=== PATIENT | male | born 1975 ===

== ENCOUNTER 2018-06-25 07:47 | Emergency (ER) | payer MEDICAID ==
[2018-06-25] MEDS ORDERED: Albuterol-Ipratrop 3 mg / 0.5 (3 ml) UD IH STA (08:27)
--- NOTE | 2018-06-25 08:27 | C.PDOC ---
History Of Present Illness 42 year old male comes in stating that he hasnt been feeling well for the past 6 days. He complains of nasal congestion, chest congestion, subjective fever, productive cough with greenish sputum, and body aches. Also complains that he has difficulty sleeping, kept on coughing. Patient states that he is in a rehab program and that "everyone is sick there. He reports that they didn't let him take any medications so he came here to the ER. Patient denies any other symptoms. Time Seen by Provider: 06/25/18 07:59 Chief Complaint (Nursing): Cough, Cold, Congestion History Per: Patient History/Exam Limitations: no limitations Onset/Duration Of Symptoms: Days Current Symptoms Are (Timing): Still Present Past Medical History Reviewed: Historical Data, Nursing Documentation, Vital Signs Vital Signs: Last Vital Signs Temp 98.3 F 06/25/18 07:49 Pulse 105 H 06/25/18 07:49 Resp 20 06/25/18 07:49 BP 127/80 06/25/18 07:49 Pulse Ox 98 06/25/18 07:49 Family History: States: No Known Family Hx - Social History Hx Alcohol Use: No Hx Substance Use: No - Immunization History Hx Tetanus Toxoid Vaccination: No Hx Influenza Vaccination: No Review Of Systems Except As Marked, All Systems Reviewed And Found Negative. Constitutional: Positive for: Fever (subjective), Other (Body aches). Negative for: Chills ENT: Positive for: Nose Congestion (and chest congestion). Negative for: Throat Pain Cardiovascular: Negative for: Chest Pain Respiratory: Positive for: Cough, Sputum (greenish). Negative for: Shortness of Breath Gastrointestinal: Negative for: Nausea, Vomiting, Abdominal Pain Skin: Negative for: Rash Physical Exam - Physical Exam Appears: Non-toxic, No Acute Distress Skin: Warm, Dry Head: Atraumatic, Normacephalic Eye(s): bilateral: Normal Inspection, PERRL Ear(s): Bilateral: Normal Oral Mucosa: Moist Throat: Normal, No Erythema, No Exudate Neck: Supple Cardiovascular: Rhythm Regular, No Murmur Respiratory: Normal Breath Sounds, No Rales, No Rhonchi, No Wheezing Gastrointestinal/Abdominal: Soft, No Tenderness Extremity: Bilateral: Atraumatic, Normal Color And Temperature, Normal ROM Neurological/Psych: Oriented x3, Normal Speech ED Course And Treatment O2 Sat by Pulse Oximetry: 98 (RA) Pulse Ox Interpretation: Normal - Other Rad CXR X-Ray: Read By Radiologist Interpretation: FINDINGS: LUNGS: No active pulmonary disease. PLEURA: No significant pleural effusion identified. No pneumothorax apparent. CARDIOVASCULAR: No aortic atherosclerotic calcification present. Normal cardiac size. No pulmonary vascular congestion. Approximately 4 mm rounded hyperdensity over left hilum probably a vessel seen on end. A granuloma would be another favored consideration. OSSEOUS STRUCTURES: No significant abnormalities. VISUALIZED UPPER ABDOMEN: Normal. OTHER FINDINGS: None. IMPRESSION: No suspect acute cardiopulmonary pathology. Specifically no consolidative infiltrate seen. Progress Note: Chest x-ray ordered. Patient is slightly tachycardic but otherwise fine. Patient was given nebulizer treatment and zithromax PO. Disposition - Disposition Disposition: HOME/ ROUTINE Disposition Time: 09:39 Condition: STABLE Additional Instructions: Follow up with PMD/clinic within 2-3 days. Return to ED if feel worse. Prescriptions: Brompheniramine/Pseudoephed/Dm [Bromfed Dm Cough 118 ml] 10 ml PO Q4 #300 ml Ibuprofen [Motrin Tab] 600 mg PO Q8 #30 tab Albuterol Sulfate [Proair Hfa] 1 puff IH Q6 PRN #1 inh PRN Reason: Cough Azithromycin [Zithromax] 250 mg PO DAILY #4 tab Instructions: Acute Bronchitis Forms: [facility] (Russian) - Clinical Impression Clinical Impression: Bronchitis - PA / [employer] / Resident Statement MD/DO has reviewed & agrees with the documentation as recorded. - Scribe Statement The provider has reviewed the documentation as recorded by the Saniyaibnilesh Arellano All medical record entries made by the Saniyaibnilesh were at my direction and personally dictated by me. I have reviewed the chart and agree that the record accurately reflects my personal performance of the history, physical exam, medical decision making, and the department course for this patient. I have also personally directed, reviewed, and agree with the discharge instructions and disposition.
[2018-06-25] MEDS ORDERED: Albuterol-Ipratrop 3 mg / 0.5 (3 ml) UD ONE (08:40)
--- NOTE | 2018-06-25 08:52 | RAD ---
Date of service: 06/25/2018 HISTORY: productive cough, subjective fever COMPARISON: No prior. TECHNIQUE: Chest PA and lateral FINDINGS: LUNGS: No active pulmonary disease. PLEURA: No significant pleural effusion identified. No pneumothorax apparent. CARDIOVASCULAR: No aortic atherosclerotic calcification present. Normal cardiac size. No pulmonary vascular congestion. Approximately 4 mm rounded hyperdensity over left hilum probably a vessel seen on end. A granuloma would be another favored consideration. OSSEOUS STRUCTURES: No significant abnormalities. VISUALIZED UPPER ABDOMEN: Normal. OTHER FINDINGS: None. IMPRESSION: No suspect acute cardiopulmonary pathology. Specifically no consolidative infiltrate seen.
[2018-06-25 09:36] VITALS: BP 110/76; PULSE 84; RESP 18; TEMP 98.4
[2018-06-25 09:45] VITALS: O2SAT 98
== END 2018-06-25 10:04 | disposition home or self-care (01) ==
LOC: C.ER 07:47
DX: J40 Bronchitis, not specified as acute or chronic (principal)